=== PATIENT | male | born 1945 | race African-American/Black ===

== ENCOUNTER 2022-06-15 12:30 | Outpatient (RCR) | payer MEDICARE, SELFPAY ==
--- NOTE | 2022-03-18 12:53 | PTOPEVAL1 ---
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 The patient has decreased strength in the L arm and leg. (Asked referring doctor's office for OT evaluation for the arm). Patient is currently not walking and using a wheelchair to get around. Physical therapy will work with the patient to improve strength and coordination in extremities which will allow more time in standing to work on balance and endurance to improve functional mobility especially transfers, gait, and stair training. Plan of Care Interventions Electrical Stimulation,Gait Training,Hot Pack/Cold Pack,Manual Therapy,Neuro Re-education,Patient/ Caregiver Education,Therapeutic Activities, Therapeutic Exercise,Wheelchair Training PT Services Indicated Yes Treatment Frequency and 2x/wk for 6 weeks Duration These treatments will address the objective and functional deficits as defined above. The patient will be advanced safely and appropriately in order for the patient to progress towards his/her prior level of function. Additional exercises will be introduced and as well as a comprehensive home exercise program upon discharge, if needed, ?to ensure carryover of functional gains achieved in the clinic. This treatment plan has been reviewed and agreement upon by the patient.
[2022-04-13 09:31] VITALS: BP_SYST 95
--- NOTE | 2022-04-13 10:48 | OTOPEVAL1 ---
Assessment and note entered by nOeida Pinzon OTR/Lainey Evaluation Information Assessment Status Evaluation Diagnosis CVA Subjective Information Patient presents to outpatient OT for CVA 3 months prior with L hemiparesis. Patient reports decreased strength, ROM in L arm and hand. Patient wants to get as much movement back in L arm as he can through therapy. Reported Pain Level Pain Score 0: Self Report Assessment OT Clinical Summary Eldon is a 76 year old male who presents to Outpatient OT following a CVA 3 months ago resulting in L side weakness. Patient reports decreased functional use of L UE. Patient demonstrates deficits with L UE weakness and decreased active/passive ROM of L UE. Patient would benefit from skilled OT for HEP instruction, UE exercises and modalities, in order to optimize functional use of L UE. Plan of Care Interventions Therapeutic Exercise,Manual Therapy,Neuro Re- education,Therapeutic Activities,Hot Pack/Cold Pack,Electrical Stimulation,Self-Care/Home Management OT Services Indicated Yes Treatment Frequency and 1x/week for 4 weeks Duration These treatments will address the objective and functional deficits as defined above. The patient will be advanced safely and appropriately in order for the patient to progress towards his/her prior level of function. Additional exercises will be introduced and as well as a comprehensive home exercise program upon discharge, if needed, ?to ensure carryover of functional gains achieved in the clinic. This treatment plan has been reviewed and agreement upon by the patient.
--- NOTE | 2022-04-29 13:56 | PTOPREEVAL ---
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 Reported Pain Level Pain Score 0: Self Report Assessment PT Clinical Summary Eldon is a 76 year old male coming to the clinic to work on functional mobility following a CVA in January of this year. He has improved distance walking and decreased assistance needed with stairs, walking, and transfers, Improved strength in L knee and hip flexion. Secondary to decreased improvement in ankle strength recommend patient get a script for an appt with platemaker for at least an AFO to help improve functional mobility in the clinic and at home. Plan of Care Interventions Electrical Stimulation,Gait Training,Hot Pack/Cold Pack,Manual Therapy,Neuro Re-education,Patient/ Caregiver Education,Therapeutic Activities, Therapeutic Exercise,Ultrasound PT Services Indicated Yes Treatment Frequency and 2x/wk for 4 weeks Duration These treatments will address the objective and functional deficits as defined above. The patient will be advanced safely and appropriately in order for the patient to progress towards his/her prior level of function. Additional exercises will be introduced and as well as a comprehensive home exercise program upon discharge, if needed, ?to ensure carryover of functional gains achieved in the clinic. This treatment plan has been reviewed and agreement upon by the patient.
--- NOTE | 2022-05-03 09:58 | PCPTNOTE ---
Called patient's doctor at [phone]. Dr. Joseph Thomas and talked to Clarisse about getting Eldon an order for an AFO and consult to an inside phone sales.
[2022-05-11 10:23] VITALS: BP_SYST 100
--- NOTE | 2022-05-11 11:25 | OTOPPROG ---
Assessment and note entered by GONZÁLEZ Mcdonough/Lainey Evaluation Information Assessment Status Progress Diagnosis CVA Subjective Information Patient presents to outpatient OT for CVA 3 months prior with L hemiparesis. Patient reports decreased strength, ROM in L arm and hand. Patient reports since beginning therapy L UE feels looser. Patient reports works on HEP for L UE everyday. Patient reports UE exercises help with pain and there is less pain at night time when sleeping. Assessment OT Clinical Summary Eldon is a 76 year old male who presents to Outpatient OT for a re-evaluation following a CVA 3 months ago resulting in L side weakness. Patient has attended x3 OT treatments since initial evaluation with focus on neuro re-education, UE exercise. Patient reports increased ROM of L UE and decreased pain in shoulder. Patient demonstrates improvements with L UE active/passive ROM of L UE. Patient would benefit from continued skilled OT for HEP instruction, UE exercises and modalities, in order to optimize functional use of L UE. Plan of Care Interventions Therapeutic Exercise,Manual Therapy,Neuro Re- education,Therapeutic Activities,Hot Pack/Cold Pack,Electrical Stimulation,Self-Care/Home Management OT Services Indicated Yes Treatment Frequency and 1x/week for 5 weeks Duration These treatments will address the objective and functional deficits as defined above. The patient will be advanced safely and appropriately in order for the patient to progress towards his/her prior level of function. Additional exercises will be introduced and as well as a comprehensive home exercise program upon discharge, if needed, ?to ensure carryover of functional gains achieved in the clinic. This treatment plan has been reviewed and agreement upon by the patient.
--- NOTE | 2022-05-19 10:47 | PCPTNOTE ---
Called patient as his doctor has written the order for the brace, but the clinic is in [place]. Informed the patient that there is a [facility] clinic across the street from here and probably one in [place] if he wants to dig further into it. Patient reports he is going to try and call to get an appt at the Clinic across the street from on the same day he has a PT appt.
--- NOTE | 2022-05-27 16:32 | PTOPREEVAL ---
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 Reports everyday feeling stronger and moving around better. Reported Pain Level Pain Score 0: Self Report Assessment PT Clinical Summary Eldon is a 76 year old male coming to the clinic for therapy after a CVA. He is showing increased functional mobility and strength, but progress is slowed secondary needing extra help at home to work on walking. Patient recommended to get orthotic bracing after last re-evaluation and has the script, but reports he has to wait until his tax return to get it. Patient still has not plateaued and will continue to work on balance, endurance, and strength, to improved functional mobility. Plan of Care Interventions Electrical Stimulation,Gait Training,Hot Pack/Cold Pack,Manual Therapy,Neuro Re-education,Patient/ Caregiver Education,Therapeutic Activities, Therapeutic Exercise PT Services Indicated Yes Treatment Frequency and 2x/wk for 6 weeks Duration These treatments will address the objective and functional deficits as defined above. The patient will be advanced safely and appropriately in order for the patient to progress towards his/her prior level of function. Additional exercises will be introduced and as well as a comprehensive home exercise program upon discharge, if needed, ?to ensure carryover of functional gains achieved in the clinic. This treatment plan has been reviewed and agreement upon by the patient.
[2022-06-15 12:37] VITALS: BP_SYST 100
--- NOTE | 2022-06-15 13:26 | OTOPDC ---
Assessment and note entered by Karson Mejia, GONZÁLEZ/Lainey, CHT Evaluation Information Assessment Status Discharge Diagnosis CVA Onset 02/11/22 Subjective Information Eldon reports since beginning therapy L UE feels looser. Patient reports he works on HEP for L UE everyday. Patient reports UE exercises help with pain and there is less pain at night time when sleeping. Functionally he reports he is not able to use his hand just yet. Reported Pain Level Pain Score 3,3: Self Report Assessment OT Clinical Summary Eldon presents today for OT re-assessment following 8 treatment sessions. At this time the ROM and functional strength of the left UE has remained unchanged since his last reassessment. Reviewed his HEP and he demonstrates good understanding of ROM and strengthening HEP. No further skilled OT indicated at this time. Patient in agreement with discharge, stating, I can continue to work on my arm at home . Recommend follow up in a few months if patient finds he is making progress and is ready for progression of HEP/exercises. Plan of Care OT Services Indicated No
== END 2022-06-16 13:43 | disposition home or self-care (01) ==
LOC: ANHOT 12:30
PROVIDERS: PCP Internal Medicine; Visit Provider Internal Medicine
DX: I63.9 Cerebral infarction, unspecified (principal)
CPT/HCPCS: 97014; 97110; 97112; 97116; 97140; 97162; 97165; 97530; G0283

== ENCOUNTER 2022-08-18 11:15 | Outpatient (RCR) | payer MEDICARE, SELFPAY ==
[2022-06-16 13:44] VITALS: BP_SYST 100
--- NOTE | 2022-07-08 17:43 | PTOPREEVAL ---
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 Reports he is going to be getting his AFO on Jul 19. Reported Pain Level Pain Score 0: Self Report Assessment PT Clinical Summary Eldon is a 76 year old male coming into the clinic for help with strengthening and functional mobility following a CVA in Jan. of last year. He has been coming for 20 visits for physical therapy. I feel we are close to where we want to be with him being eventually standby with steps, transfers, and gait. Patient is getting an AFO in the next couple weeks and would like to keep him to improve gait with his orthotic. Plan of Care Interventions Electrical Stimulation,Gait Training,Hot Pack/Cold Pack,Manual Therapy,Neuro Re-education,Patient/ Caregiver Education,Therapeutic Activities, Therapeutic Exercise,Ultrasound Other Interventions taping PT Services Indicated Yes Treatment Frequency and 2x/wk for 4 weeks Duration These treatments will address the objective and functional deficits as defined above. The patient will be advanced safely and appropriately in order for the patient to progress towards his/her prior level of function. Additional exercises will be introduced and as well as a comprehensive home exercise program upon discharge, if needed, ?to ensure carryover of functional gains achieved in the clinic. This treatment plan has been reviewed and agreement upon by the patient.
--- NOTE | 2022-07-23 14:06 | PCPTNOTE ---
Patient called & cancelled scheduled appointment this date due to back hurting
--- NOTE | 2022-07-27 13:28 | PCPTNOTE ---
Patient called & cancelled scheduled appointment this date due to back pain.
--- NOTE | 2022-08-05 10:59 | PTOPREEVAL ---
Assessment and note entered by Meng Trujillo, PT Evaluation Information Assessment Status Re-evaluation Diagnosis CVA Onset 02/11/22 Subjective Information Patient reports he is getting his AFO brace next week and he got a large based quad cane from [employer] earlier this week. Is feeling a lot better about his functional mobility. Reported Pain Level Pain Score 0: Self Report Assessment PT Clinical Summary Eldon is still making significant progress meeting both of his current goals. Will use one more round of therapy to get him used to his L AFO and progress from standby to independent with at least household ambulation. Plan of Care Interventions Electrical Stimulation,Gait Training,Hot Pack/Cold Pack,Manual Therapy,Neuro Re-education,Patient/ Caregiver Educati,Therapeutic Activities, Therapeutic Exercise,Ultrasound Other Interventions taping PT Services Indicated Yes Treatment Frequency and 1-2x/wk for 4 weeks Duration These treatments will address the objective and functional deficits as defined above. The patient will be advanced safely and appropriately in order for the patient to progress towards his/her prior level of function. Additional exercises will be introduced and as well as a comprehensive home exercise program upon discharge, if needed, ?to ensure carryover of functional gains achieved in the clinic. This treatment plan has been reviewed and agreement upon by the patient.
--- NOTE | 2022-08-24 10:07 | PCPTNOTE ---
Pt cancelled this morning for afternoon appt due to no ride.
--- NOTE | 2022-09-01 15:15 | PTOPDC ---
Assessment and note entered by Meng Trujillo, PT Evaluation Information Assessment Status Discharge - Pt Not Presen Diagnosis CVA Onset 02/11/22 Subjective Information Patient reports he is getting his AFO brace next week and he got a large based quad cane from [employer] earlier this week. Is feeling a lot better about his functional mobility. Assessment PT Clinical Summary Eldon is a 76 year old male coming into the clinic after having a CVA in Jan of last year. He was evaluated on March 18, 2022 and attended 26 sessions. He was able to progress to from mainly W/C to ambulating with his new AFO and a quad cane. Patient cancelled last two appointments secondary to having issues with getting a ride. Plan of Care PT Services Indicated Yes
== END 2022-09-01 15:54 | disposition home or self-care (01) ==
LOC: ANHPT 11:15
PROVIDERS: PCP Internal Medicine; Visit Provider Internal Medicine
DX: I63.9 Cerebral infarction, unspecified (principal)
CPT/HCPCS: 97110; 97112; 97116; 97530